=== PATIENT | female | born 1965 | race Caucasian/White ===

== ENCOUNTER 2016-09-12 21:45 | Emergency (ER) | payer OTHER ==
[~2016-09-12] VITALS: Ht 167.6 cm; Wt 94.4 kg
[~2016-09-12 21:45] MED LIST: PRIL20TA2 PO
[2016-09-12 21:50] VITALS: BP 129/82; PULSE 71; RESP 16; TEMP 97.6; O2SAT 100
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
[2016-09-12] MEDS ORDERED: PRIL20CA9 PO (22:36)
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
[2016-09-12] MEDS ORDERED: ROBA500T PO (23:25)
[2016-09-12] MEDS ORDERED: HYDR-3533 PO (23:25)
[2016-09-12 23:38] VITALS: BP 121/75
== END 2016-09-12 23:36 | disposition home or self-care (01) ==
LOC: PHED 21:45
DX: S09.90XA Unspecified injury of head, initial encounter (principal); S00.11XA Contusion of right eyelid and periocular area, initial encounter; S16.1XXA Strain of muscle, fascia and tendon at neck level, initial encounter; V48.5XXA Car driver injured in noncollision transport accident in traffic accident, initial encounter; Y93.89 Activity, other specified; Y92.410 Unspecified street and highway as the place of occurrence of the external cause
CPT/HCPCS: 70450; 70486; 72125

== ENCOUNTER 2016-10-08 16:33 | Emergency (ER) | payer OTHER ==
[~2016-10-08] VITALS: Ht 167.6 cm; Wt 92.0 kg
[~2016-10-08 16:33] MED LIST changes: +HYDR-3533 PO; +PRIL20CA9 PO; -PRIL20TA2 PO; +ROBA500T PO
[2016-10-08 16:46] VITALS: BP 116/74; PULSE 82; RESP 16; TEMP 97.8; O2SAT 96
[2016-10-08] MEDS ORDERED: ORPHENADRINE CITRATE 100 MG SUSTAINED RELEASE TAB PO ONE (18:45)
[2016-10-08] MEDS ORDERED: ACETAMINOPHEN/HYDROcodone 325 MG/5 MG TAB PO ONE (18:45)
[2016-10-08] MEDS ORDERED: DEXAMETHASONE 4 MG TAB PO ONE (18:45)
[2016-10-08] MEDS ORDERED: ORPH100T99 PO ×2 (18:46→18:47)
[2016-10-08] MEDS ORDERED: MEDR4PAK PO ×2 (18:46→18:47)
[2016-10-08] MEDS ORDERED: NORC5TAB PO ×2 (18:46→18:47)
--- NOTE | 2016-10-08 18:46 | PD ---
HPI Chief Complaint: Back/ Neck Pain or Injury Time Seen by Provider: 18:36 Travel History International Travel<30 days: No Contact w/Intl Traveler<30days: No Traveled to known affect area: No History of Present Illness HPI The patient is a 51-year-old female who presents to the emergency department for low back pain. The patient states she works on her feet for 12 hours per day, was leaning against a marble wall yesterday, when she stood up, she had pain in the lower back. The pain is located over the sacroiliac area and radiates into the right buttock and down the right leg, to the posterior aspect of the right knee. The pain is worse with certain types of movement, lying supine, moderate in severity, without any alleviating factors. The patient denies any blunt trauma to the lower back. The patient denies any dysuria, frequency, urgency, or incontinence. The patient denies any weakness, numbness, or tingling of the lower extremities. PFSH Past Medical History Asthma: Yes Diminished Hearing: No Gastrointestinal Disorders: Yes (ULCER) GERD: Yes (ACID REFLUX) Tetanus Vaccination: > 5 Years Influenza Vaccination: No ?: Not Menopausal: Yes Past Surgical History Tonsillectomy: Yes Social History Alcohol Use: Yes (OCCAISIONAL) Tobacco Use: Yes (1 PP MONTH) Substance Use: No Allergies-Medications (Allergen,Severity, Reaction): Coded Allergies: No Known Allergies (Verified , 10/08/16) Reported Meds & Prescriptions Reported Meds & Active Scripts Active Robaxin (Methocarbamol) 500 Mg Tab 500 Mg PO TID Lortab (Hydrocodone-Acetaminophen) 5-325 Mg Tab 1 Tab PO Q6H PRN Reported Prilosec (Omeprazole) 20 Mg Cap 20 Mg PO DAILY Review of Systems Except as stated in HPI: all other systems reviewed are Neg General / Constitutional: No: Fever Gastrointestinal: No: Nausea, Vomiting, Abdominal Pain Genitourinary: No: Dysuria, Incontinence Musculoskeletal: Positive: Pain Neurologic: No: Paresthesia, Sensory Disturbance Physical Exam Narrative GENERAL: Awake, alert, pleasant 51-year-old female who appears her stated age is in no acute respiratory distress. SKIN: Warm and dry. HEAD: Atraumatic. Normocephalic. EYES: No injection or drainage. ENT: No nasal bleeding or discharge. Mucous membranes pink and moist. NECK: Trachea midline. No JVD. GASTROINTESTINAL: Abdomen soft, non-tender, nondistended. No rebound tenderness. No suprapubic tenderness. Back: Tenderness of the right sacroiliac. No midline tenderness. Tenderness of the right gluteal area. MUSCULOSKELETAL: No obvious deformities. Positive straight leg on the right at 30. Plantar flexion is 5 out of 5, extension knees bilateral is 5 out of 5, flexion of the has bilateral 5 out of 5. Positive distal pulses. NEUROLOGICAL: Awake and alert. No obvious cranial nerve deficits. Motor grossly within normal limits. Normal speech. Sensation is symmetric in the lower extremities bilaterally. PSYCHIATRIC: Appropriate mood and affect; insight and judgment normal. Data Data Last Documented VS Vital Signs Date Time Temp Pulse Resp B/P Pulse Ox O2 Delivery O2 Flow Rate FiO2 10/08/16 16:46 97.8 82 16 116/74 96 Orders Dexamethasone (Decadron) (10/08/16 18:45) Orphenadrine Sr (Norflex Cr) (10/08/16 18:45) Acetamin-Hydrocod 325-5 Mg (Dexter 5-325 (10/08/16 18:45) MDM Medical Decision Making Medical Screen Exam Complete: Yes Emergency Medical Condition: Yes Medical Record Reviewed: Yes Differential Diagnosis Differential diagnosis includes back pain with radiculopathy, spinal stenosis, herniated disc, sciatica, neuralgia, UTI, AAA, aortic dissection. Narrative Course The patient's physical examination is consistent back pain with radiculopathy, possibly sciatica. The patient declined IV/IM meds, therefore, was administered Decadron orally, Norflex orally, and Dexter orally. The patient will be provided a work excuse for tomorrow and the next day. She will be discharged home on Medrol Dosepak, Norflex, and Dexter. She is advised to apply heat to the affected area, activity as tolerated, and stretching exercises. She is also advised to follow-up with her primary physician. Diagnosis Primary Impression: Back pain with right-sided radiculopathy Patient Instructions: General Instructions Additional Instructions: Medications as directed. Follow-up with your primary physician. Work excuse for Tuesday and Tuesday. Return if symptoms worsen or progress. Med/Other Pt SpecificInfo: Prescription(s) given Scripts Hydrocodone-Acetaminophen (Dexter)5-325 mg Tab1 Tab PO Q6H PRN (PAIN) #15 TAB Ref 0 Prov:Kamron Ayala MD 10/08/16 Orphenadrine ER 12 HR (Orphenadrine CR)100 Mg Biv492 Mg PO Q12HR #30 TAB Ref 0 Prov:Kamron Ayala MD 10/08/16 Methylprednisolone Dosepak (Medrol Dosepak)4 Mg Dspk4 Mg PO DIRECTED #1 DSPK Ref 0 Per Pharmacist direction Prov:Kamron Ayala MD 10/08/16 Disposition: 01 DISCHARGE HOME Condition: Stable Kamron Ayala MD Oct 08, 2016 18:46
== END 2016-10-08 19:18 | disposition home or self-care (01) ==
LOC: PHED 16:33 → PHEFT 19:18
DX: M54.17 Radiculopathy, lumbosacral region (principal)
CPT/HCPCS: 99283; J8540

== ENCOUNTER 2017-06-03 21:27 | Emergency (ER) | payer SELFPAY ==
[~2017-06-03] VITALS: Ht 167.6 cm; Wt 94.0 kg
[~2017-06-03 21:27] MED LIST changes: +MEDR4PAK PO; +NORC5TAB PO; +ORPH100T99 PO
[2017-06-03 21:33] VITALS: BP 125/89; PULSE 77; RESP 20; TEMP 97.6; O2SAT 97
[2017-06-03] MEDS ORDERED: ALEV220T14 PO (21:44)
[2017-06-03] MEDS ORDERED: PRIL20TA2 PO (21:44)
[2017-06-03] MEDS ORDERED: IBUP800T23 PO (22:07)
[2017-06-03] MEDS ORDERED: ROBA500T PO (22:07)
--- NOTE | 2017-06-03 22:18 | PD ---
HPI Chief Complaint: Pain: Acute or Chronic Time Seen by Provider: 21:58 Travel History International Travel<30 days: No Contact w/Intl Traveler<30days: No Traveled to known affect area: No History of Present Illness HPI 51-year-old female with chief complaint of right low back pain radiating down into the leg times several weeks. Patient reports history sciatica. She denies injury. She reports pain similar to past. She denies fever, chills, urinary or bowel incontinence. Symptoms severity is mild. PFSH Past Medical History Asthma: Yes (as child) Diminished Hearing: No Gastrointestinal Disorders: Yes GERD: Yes (ACID REFLUX) Musculoskeletal: Yes (rt leg pain for months) Immunizations Current: No Tetanus Vaccination: < 5 Years Influenza Vaccination: No ?: Not LMP: 06-03-17 Menopausal: Yes Dilation and Curettage (D&C): Yes Past Surgical History Tonsillectomy: Yes Social History Alcohol Use: Yes (OCCAISIONAL) Tobacco Use: No Substance Use: No Allergies-Medications (Allergen,Severity, Reaction): Coded Allergies: No Known Allergies (Verified , 06/03/17) Reported Meds & Prescriptions Reported Meds & Active Scripts Active Reported Aleve Arthritis (Naproxen Sodium) 220 Mg Tab 220 Mg PO BID Prilosec (Omeprazole Magnesium) 20 Mg Tab 1 Tab PO DAILY Review of Systems Except as stated in HPI: all other systems reviewed are Neg Physical Exam Narrative GENERAL: Alert well-appearing female in no acute distress. SKIN: Warm and dry. HEAD: Atraumatic. Normocephalic. EYES: Pupils equal and round. No scleral icterus. No injection or drainage. ENT: No nasal bleeding or discharge. Mucous membranes pink and moist. NECK: Trachea midline. No JVD. CARDIOVASCULAR: Regular rate and rhythm. RESPIRATORY: No accessory muscle use. Clear to auscultation. Breath sounds equal bilaterally. GASTROINTESTINAL: Abdomen soft, non-tender, nondistended. Hepatic and splenic margins not palpable. MUSCULOSKELETAL: Extremities without clubbing, cyanosis, or edema. No obvious deformities. NEUROLOGICAL: Awake and alert. No obvious cranial nerve deficits. Motor grossly within normal limits. Five out of 5 muscle strength in the arms and legs. Normal speech. BACK: No CVA tenderness. No rash. No point tenderness on palpation of the spine. TTP right paraspinous muscle in the lumbar region Data Data Last Documented VS Vital Signs Date Time Temp Pulse Resp B/P (MAP) Pulse Ox O2 Delivery O2 Flow Rate FiO2 06/03/17 21:33 97.6 77 20 125/89 (101) 97 MDM Medical Decision Making Medical Screen Exam Complete: Yes Emergency Medical Condition: Yes Differential Diagnosis SCIATICA, LUMBAR STRAIN, R LEG PAIN Narrative Course 51-year-old female with chief complaint of right low back pain radiating down into the leg times several weeks. Patient reports history sciatica. She reports pain similar to past. She denies fever, chills, urinary or bowel incontinence. Physical exam is consistent with sciatica. Diagnosis Primary Impression: Sciatica Qualified Codes: M54.31 - Sciatica, right side Referrals: Primary Care Physician Additional Instructions: Take the medication as prescribed. Avoid heavy lifting or strenuous activity. Use heat or ice as needed for pain. Scripts Ibuprofen (Ibuprofen) 800 Mg Tab 800 MG PO Q6HR Y for PAIN, #30 TAB 0 Refills Prov: Brit Lee 06/03/17 Methocarbamol (Robaxin) 500 Mg Tab 500 MG PO TID for Muscle Spasm, #15 TAB 0 Refills Prov: Brit Lee 06/03/17 Disposition: 01 DISCHARGE HOME Condition: Stable Brit Lee Jun 03, 2017 22:18
== END 2017-06-03 22:24 | disposition home or self-care (01) ==
LOC: PHEFT 21:27
DX: M54.31 Sciatica, right side (principal); J45.909 Unspecified asthma, uncomplicated; K21.9 Gastro-esophageal reflux disease without esophagitis
CPT/HCPCS: 99283

== ENCOUNTER 2017-06-22 20:29 | Emergency (ER) | payer SELFPAY ==
[~2017-06-22] VITALS: Ht 167.6 cm; Wt 95.7 kg
[~2017-06-22 20:29] MED LIST changes: +ALEV220T14 PO; -HYDR-3533 PO; +IBUP800T23 PO; -MEDR4PAK PO; -NORC5TAB PO; -ORPH100T99 PO; -PRIL20CA9 PO; +PRIL20TA2 PO
[2017-06-22 20:34] VITALS: BP 135/65; PULSE 80; RESP 18; TEMP 97.8
[2017-06-22] MEDS ORDERED: CYCL1TAB29 PO (20:58)
[2017-06-22] MEDS ORDERED: MEDR4PAK PO (20:58)
[2017-06-22] MEDS ORDERED: CYCLOBENZAPRINE HCL 10 MG TAB PO ONE (21:00)
[2017-06-22] MEDS ORDERED: IBUPROFEN 600 MG TAB PO ONE (21:00)
--- NOTE | 2017-06-22 21:00 | PD ---
HPI Chief Complaint: Back/ Neck Pain or Injury Time Seen by Provider: 20:40 Travel History International Travel<30 days: No Contact w/Intl Traveler<30days: No Traveled to known affect area: No History of Present Illness HPI 51-year-old female presents to the emergency department for evaluation of back pain that radiates down the right leg. She states she has been having sciatica symptoms for the past year. No recent trauma or injury. She states has been worsening over the past few weeks due to heavy lifting at work. Patient denies any fevers or chills. No loss of bowel or bladder control. No saddle anesthesias. Patient states that movement makes the symptoms worse. She stated relieved with mild improvement at home. Patient has been seen here multiple times for the same issue. She has not yet followed up with a primary care physician. She states she has insurance, but has not made an appointment to see a primary. She has been ambulatory. She reports no other medical problems. She takes Aleve and Prilosec at home. No other complaints. She denies any history of IV drug use. PFSH Past Medical History Asthma: Yes (as child) Diminished Hearing: No Gastrointestinal Disorders: Yes GERD: Yes (ACID REFLUX) Musculoskeletal: Yes (rt leg pain for months) Immunizations Current: No Tetanus Vaccination: < 5 Years Influenza Vaccination: No ?: Not Menopausal: Yes Dilation and Curettage (D&C): Yes Past Surgical History Tonsillectomy: Yes Social History Alcohol Use: Yes (OCCAISIONAL) Tobacco Use: No Substance Use: No Allergies-Medications (Allergen,Severity, Reaction): Coded Allergies: No Known Allergies (Verified , 06/22/17) Reported Meds & Prescriptions Reported Meds & Active Scripts Active Ibuprofen 800 Mg Tab 800 Mg PO Q6HR PRN Robaxin (Methocarbamol) 500 Mg Tab 500 Mg PO TID Reported Aleve Arthritis (Naproxen Sodium) 220 Mg Tab 220 Mg PO BID Prilosec (Omeprazole Magnesium) 20 Mg Tab 1 Tab PO DAILY Review of Systems Except as stated in HPI: all other systems reviewed are Neg Physical Exam Narrative GENERAL: Well-nourished, well-developed female patient, ambulatory. Afebrile. SKIN: Focused skin assessment warm/dry. HEAD: Normocephalic. Atraumatic. EYES: No scleral icterus. No injection or drainage. NECK: Supple, trachea midline. No JVD or lymphadenopathy. CARDIOVASCULAR: Regular rate and rhythm without murmurs, gallops, or rubs. Bilateral radial and pedal pulses are 2+. RESPIRATORY: Breath sounds equal bilaterally. No accessory muscle use. Lungs sounds are clear to auscultation. GASTROINTESTINAL: Abdomen soft, non-tender, nondistended. MUSCULOSKELETAL: No cyanosis, or edema. Bilateral upper and lower extremity strength 5/5. All extremities are neurovascularly intact. BACK: Nontender without obvious deformity. No CVA tenderness. Patient has tenderness over lower lumbar spine, left lumbar paraspinal musculature. Data Data Last Documented VS Vital Signs Date Time Temp Pulse Resp B/P (MAP) Pulse Ox O2 Delivery O2 Flow Rate FiO2 06/22/17 20:34 97.8 80 18 135/65 (88) Orders Orders Ibuprofen (Motrin) (06/22/17 21:00) Cyclobenzaprine (Flexeril) (06/22/17 21:00) MDM Medical Decision Making Medical Screen Exam Complete: Yes Emergency Medical Condition: Yes Medical Record Reviewed: Yes Differential Diagnosis sciatica versus lumbar strain versus herniated disc Narrative Course 51-year-old female presents to the emergency department for evaluation of low back pain that radiates down the right leg. Patient states she's had these symptoms for one year. She is encouraged to follow with her primary care physician for further evaluation. Patient declines injections. She is given ibuprofen 600 mg by mouth, Flexeril 10 mg by mouth. She'll be discharged with a prescription for Flexeril and Medrol Dosepak. She is also requesting a note for work. The patient was discharged in stable condition with instructions, including return instructions and follow up instructions. Diagnosis Primary Impression: Back pain with right-sided radiculopathy Referrals: Primary Care Physician call for appointment Patient Instructions: General Instructions, Sciatica (ED) Departure Forms: Tests/Procedures, Work Release Enter return to work date: Jun 26, 2017 Additional Instructions: Continue Aleve or ibuprofen at home as needed for pain. Take Medrol Dosepak as directed. Take Flexeril as directed as needed. Heating pad on low for 20 minutes 4-5 times daily. Follow-up with your primary care physician. Return to the emergency department for any acute worsening of symptoms. Med/Other Pt SpecificInfo: Prescription(s) given Scripts Cyclobenzaprine (Flexeril) 10 Mg Tab 10 MG PO TID Y for MUSCLE SPASM, #21 TAB 0 Refills Prov: Thea Sargent 06/22/17 Methylprednisolone Dosepak (Medrol Dosepak) 4 Mg Dspk 4 MG PO DIRECTED, #1 DSPK 0 Refills Per Pharmacist direction Prov: Thea Sargent 06/22/17 Disposition: 01 DISCHARGE HOME Condition: Stable Thea Sargent Jun 22, 2017 21:00
[2017-06-22 21:03] VITALS: O2SAT 96
== END 2017-06-22 21:10 | disposition home or self-care (01) ==
LOC: PHEFT 20:29
DX: M54.16 Radiculopathy, lumbar region (principal)
CPT/HCPCS: 99284